=== PATIENT | male | born 1965 ===

== ENCOUNTER 2020-12-22 12:19 | Emergency (ER) | payer SELFPAY ==
[~2020-12-22] VITALS: Ht 193 cm; Wt 80.8 kg
[2020-12-22 13:10] VITALS: BP 126/86
== END 2020-12-22 16:17 | disposition left against medical advice (07) ==
LOC: ER 12:22
DX: S61.219A Laceration without foreign body of unspecified finger without damage to nail, initial encounter (principal); Z53.21 Procedure and treatment not carried out due to patient leaving prior to being seen by health care provider; X58.XXXA Exposure to other specified factors, initial encounter; Y93.9 Activity, unspecified; Y92.9 Unspecified place or not applicable; Y99.9 Unspecified external cause status